=== PATIENT | male | born 1965 | race African-American/Black ===

== ENCOUNTER 2021-01-09 14:15 | Emergency (ER) | payer SELFPAY ==
[~2021-01-09] VITALS: Ht 172.7 cm; Wt 75.0 kg
[2021-01-09 15:25] VITALS: BP 140/95
== END 2021-01-09 15:27 | disposition left against medical advice (07) ==
LOC: ER 14:15
DX: R07.89 Other chest pain (principal); E11.9 Type 2 diabetes mellitus without complications; I10 Essential (primary) hypertension; E78.00 Pure hypercholesterolemia, unspecified; F10.21 Alcohol dependence, in remission
CPT/HCPCS: 71045; 93005; 99283; Z7610